=== PATIENT | male | born 1965 | race Caucasian/White ===

== ENCOUNTER 2016-12-11 01:33 | Observation (INO) | payer BC, OTHER ==
[2016-12-11] MEDS ORDERED: Ondansetron 4 MG Tab.DIS PO ONE (01:51)
[2016-12-11] MEDS ORDERED: HYDROmorphone 1 MG/ML Syringe ONE (02:03)
[2016-12-11] MEDS ORDERED: LORazepam 2 MG/ML MDV ONE (02:04)
[2016-12-11] MEDS ORDERED: LORazepam 2 MG/ML MDV IVPUSH ONE (02:05)
[2016-12-11] MEDS ORDERED: HYDROmorphone 1 MG/ML Syringe IM ONE (02:05)
--- NOTE | 2016-12-11 02:17 | EDM.PDOC ---
ED HPI GENERAL MEDICAL PROBLEM - General Chief Complaint: Abdominal Pain Stated Complaint: STOMACH/CHEST PAINS Time Seen by Provider: 12/11/16 01:54 Source of Information: Reports: Patient History Limitations: Reports: No Limitations - History of Present Illness INITIAL COMMENTS - FREE TEXT/NARRATIVE: HISTORY AND PHYSICAL: History of present illness: [51-year-old male with no significant past medical history now complaining of upper abdominal pain today. Patient was in [place] earlier and was evaluated for the same complaint. He states they "didn't do anything. "By patient's description they told him his heart was okay and to go home. No exertional chest pain. Patient does feel anxious because of the pain. No productive cough or fever. No prior chronic intra-abdominal problem.denies respiratory symptoms Review of systems: As per history of present illness and below otherwise all systems reviewed and negative. Past medical history: As per history of present illness and as reviewed below otherwise noncontributory. Surgical history: As per history of present illness and as reviewed below otherwise noncontributory. Social history: No reported history of drug or alcohol abuse. Family history: As per history of present illness and as reviewed below otherwise noncontributory. Physical exam: HEENT: Atraumatic, normocephalic, pupils reactive, negative for conjunctival pallor or scleral icterus, mucous membranes moist, throat clear, neck supple, nontender, trachea midline. Lungs: Clear to auscultation, breath sounds equal bilaterally, chest nontender. Heart: S1S2, regular, negative for clicks, rubs, or JVD. Abdomen: Soft, nondistended, positive right upper quadrant tenderness. Negative for masses or hepatosplenomegaly. Negative for costovertebral tenderness. Pelvis: Stable nontender. Genitourinary: Deferred. Rectal: Deferred. Extremities: Atraumatic, negative for cords or calf pain. Neurovascular unremarkable. Neuro: Awake, alert, oriented. Cranial nerves grossly unremarkable. Cerebellum unremarkable. Motor and sensory unremarkable throughout. Exam nonfocal. Diagnostics: [Labs/CT] Therapeutics: [Analgesia and antianxiety medication administered] Impression: [Abdominal pain Anxiety] Plan: [Patient with no prior abdominal or cardiac history now with right upper quadrant abdominal pain complicated by contributory component of anxiety. Analgesia and anxiety lytic administered. Full workup pending including labs and CT.] Definitive disposition and diagnosis as appropriate pending reevaluation and review of above. Right Upper Abdomen Pain Score (Numeric/FACES): 10 - Related Data Allergies Allergy/AdvReac Type Severity Reaction Status Date / Time No Known Allergies Allergy Verified 12/11/16 02:12 Home Meds: Home Meds Multivitamin [Multivitamins] 1 cap PO DAILY 11/16/16 [History] Past Medical History Respiratory History: Reports: Pneumonia, Recurrent, Other (See Below) Other Respiratory History: URI Genitourinary History: Reports: Other (See Below) Other Genitourinary History: proctitis Social & Family History - Tobacco Use Smoking Status *Q: Never Smoker Second Hand Smoke Exposure: No - Caffeine Use Caffeine Use: Reports: Coffee, Tea - Alcohol Use Days Per Week of Alcohol Use: 0 - Recreational Drug Use Recreational Drug Use: No ED ROS GENERAL - Review of Systems Review Of Systems: See Below (History of present illness) ED EXAM, GENERAL - Physical Exam Exam: See Below (History of present illness) Course - Vital Signs Last Recorded V/S: Last Vital Signs Temp 37.0 C 12/11/16 01:35 Pulse 56 L 12/11/16 02:31 Resp 18 12/11/16 02:31 BP 150/84 H 12/11/16 02:31 Pulse Ox 97 12/11/16 02:31 - Orders/Labs/Meds Orders: Active Orders 24 hr Category Date Time Status Admission Status [Patient Status] [ADT] Stat ADT 12/11/16 04:48 Ordered NPO [Nothing Per Oral Diet] [DIET] Diet 12/11/16 Breakfast Ordered Abdomen Pelvis w wo Cont [CT] Stat Exams 12/11/16 02:52 Taken UA W/MICROSCOPIC [URIN] Stat Lab 12/11/16 02:50 Uncollected Lactated Ringers @ 125 MLS/HR(1,000ml) Med 12/11/16 05:00 Ordered Lactated Ringers [Ringers, Lactated] 1,000 ml IV ASDIRECTED Piperacillin/Tazobactam [Piperacil-Tazobact] 4.5 gm Med 12/11/16 04:46 Ordered Sodium Chloride 0.9% [Normal Saline] 100 ml IV ONETIME Sodium Chloride 0.9% [Normal Saline] 1,000 ml Med 12/11/16 04:15 Active IV .Bolus Sodium Chloride 0.9% [Saline Flush] Med 12/11/16 02:50 Active 10 ml FLUSH ASDIRECTED PRN Sodium Chloride 0.9% [Saline Flush] Med 12/11/16 02:50 Active 2.5 ml FLUSH ASDIRECTED PRN Peripheral IV Insertion Adult [OM.PC] Stat Oth 12/11/16 02:50 Ordered Medication Orders Sodium Chloride (Normal Saline) 1,000 mls @ 999 mls/hr IV .Bolus ONE Stop: 12/11/16 05:15 Last Admin: 12/11/16 04:20 Dose: 999 mls/hr Piperacillin Sod/Tazobactam (Sod 4.5 gm/ Sodium Chloride) 100 mls @ 100 mls/hr IV ONETIME ONE Stop: 12/11/16 05:45 Lactated Ringer's (Ringers, Lactated) 1,000 mls @ 125 mls/hr IV ASDIRECTED AIDEN Sodium Chloride (Saline Flush) 10 ml FLUSH ASDIRECTED PRN PRN Reason: Keep Vein Open Sodium Chloride (Saline Flush) 2.5 ml FLUSH ASDIRECTED PRN PRN Reason: Keep Vein Open Labs: Laboratory Tests 12/11/16 12/11/16 Range/Units 02:47 02:47 WBC 21.29 H (4.0-11.0) K/uL RBC 5.78 (4.50-5.90) M/uL Hgb 16.8 (13.0-17.0) g/dL Hct 48.2 (38.0-50.0) % MCV 83.4 (80.0-98.0) fL MCH 29.1 (27.0-32.0) pg MCHC 34.9 (31.0-37.0) g/dL RDW Std Deviation 40.1 (28.0-62.0) fl RDW Coeff of Jenna 13 (11.0-15.0) % Plt Count 272 (150-400) K/uL MPV 8.90 (7.40-12.00) fL Neut % (Auto) 80.9 H (48.0-80.0) % Lymph % (Auto) 6.2 L (16.0-40.0) % [place] % (Auto) 12.8 (0.0-15.0) % Eos % (Auto) 0.0 (0.0-7.0) % Baso % (Auto) 0.1 (0.0-1.5) % Neut # (Auto) 17.2 H (1.4-5.7) K/uL Lymph # (Auto) 1.3 (0.6-2.4) K/uL [place] # (Auto) 2.7 H (0.0-0.8) K/uL Eos # (Auto) 0.0 (0.0-0.7) K/uL Baso # (Auto) 0.0 (0.0-0.1) K/uL Nucleated RBC % 0.0 /100WBC Nucleated RBCs # 0 K/uL Sodium 136 (136-146) mmol/L Potassium 3.5 (3.5-5.1) mmol/L Chloride 100 (98-110) mmol/L Carbon Dioxide 22 (21-31) mmol/L BUN 11 (6.0-23.0) mg/dL Creatinine 0.9 (0.6-1.5) mg/dL Est Cr Clr Drug Dosing 116.54 mL/min Estimated GFR (MDRD) > 60.0 ml/min Glucose 120 H (60-110) mg/dL Calcium 9.2 (8.8-10.8) mg/dL Total Bilirubin 0.7 (0.1-1.5) mg/dL AST 26 (5-40) IU/L ALT 25 (8-54) IU/L Alkaline Phosphatase 91 (40-150) Total Protein 7.7 (6.0-8.0) g/dL Albumin 4.5 (3.5-5.0) g/dL Globulin 3.2 (2.0-3.5) g/dL Albumin/Globulin Ratio 1.4 (1.3-2.8) Lipase 15 (7-80) U/L Meds: Medications Generic Name Dose Route Start Last Admin Trade Name Freq PRN Reason Stop Dose Admin Sodium Chloride 1,000 mls @ 999 mls/hr 12/11/16 04:15 12/11/16 04:20 Normal Saline IV 12/11/16 05:15 999 mls/hr .Bolus ONE Administration Piperacillin Sod/Tazobactam 100 mls @ 100 mls/hr 12/11/16 04:46 Sod 4.5 gm/ Sodium Chloride IV 12/11/16 05:45 ONETIME ONE Lactated Ringer's 1,000 mls @ 125 mls/hr 12/11/16 05:00 Ringers, Lactated IV ASDIRECTED AIDEN Sodium Chloride 10 ml 12/11/16 02:50 Saline Flush FLUSH ASDIRECTED PRN Keep Vein Open Sodium Chloride 2.5 ml 12/11/16 02:50 Saline Flush FLUSH ASDIRECTED PRN Keep Vein Open Discontinued Medications Generic Name Dose Route Start Last Admin Trade Name Freq PRN Reason Stop Dose Admin Hydromorphone HCl Confirm 12/11/16 02:03 12/11/16 02:31 Dilaudid Administered 12/11/16 02:04 Not Given Dose 1 mg .ROUTE .STK-MED ONE Hydromorphone HCl 1 mg 12/11/16 02:05 12/11/16 02:10 Dilaudid IM 12/11/16 02:06 1 mg ONETIME ONE Administration Sodium Chloride 1,000 mls @ 999 mls/hr 12/11/16 02:54 12/11/16 02:55 Normal Saline IV 12/11/16 03:54 999 mls/hr .Bolus ONE Administration Iopamidol 100 ml 12/11/16 03:32 12/11/16 03:32 Isovue Multipack-370 (76%) IVPUSH 12/11/16 03:33 100 ml ONETIME STA Administration Lorazepam 1 mg 12/11/16 02:05 12/11/16 02:15 Ativan IVPUSH 12/11/16 02:06 1 mg ONETIME ONE Administration Lorazepam Confirm 12/11/16 02:04 12/11/16 02:30 Ativan Administered 12/11/16 02:05 Not Given Dose 2 mg .ROUTE .STK-MED ONE Ondansetron HCl 4 mg 12/11/16 01:51 12/11/16 02:00 Zofran Odt PO 12/11/16 01:52 4 mg ONETIME ONE Administration Departure - Departure Time of Disposition: 04:50 Disposition: Refer to Observation Condition: Good Clinical Impression: Acute cholecystitis, Abdominal pain, Leukocytosis - Discharge Information - My Orders Last 24 Hours: My Active Orders 12/11/16 02:50 UA W/MICROSCOPIC [URIN] Stat Sodium Chloride 0.9% [Saline Flush] 10 ml FLUSH ASDIRECTED PRN Sodium Chloride 0.9% [Saline Flush] 2.5 ml FLUSH ASDIRECTED PRN Peripheral IV Insertion Adult [OM.PC] Stat 12/11/16 02:52 Abdomen Pelvis w wo Cont [CT] Stat 12/11/16 04:15 Sodium Chloride 0.9% [Normal Saline] 1,000 ml IV .Bolus 12/11/16 04:46 Piperacillin/Tazobactam [Piperacil-Tazobact] 4.5 gm Sodium Chloride 0.9% [ Normal Saline] 100 ml IV ONETIME 12/11/16 04:48 Admission Status [Patient Status] [ADT] Stat 12/11/16 05:00 Lactated Ringers @ 125 MLS/HR(1,000ml) Lactated Ringers [Ringers, Lactated] 1, 000 ml IV ASDIRECTED 12/11/16 Breakfast NPO [Nothing Per Oral Diet] [DIET] - Assessment/Plan Last 24 Hours: My Active Orders 12/11/16 02:50 UA W/MICROSCOPIC [URIN] Stat Sodium Chloride 0.9% [Saline Flush] 10 ml FLUSH ASDIRECTED PRN Sodium Chloride 0.9% [Saline Flush] 2.5 ml FLUSH ASDIRECTED PRN Peripheral IV Insertion Adult [OM.PC] Stat 12/11/16 02:52 Abdomen Pelvis w wo Cont [CT] Stat 12/11/16 04:15 Sodium Chloride 0.9% [Normal Saline] 1,000 ml IV .Bolus 12/11/16 04:46 Piperacillin/Tazobactam [Piperacil-Tazobact] 4.5 gm Sodium Chloride 0.9% [ Normal Saline] 100 ml IV ONETIME 12/11/16 04:48 Admission Status [Patient Status] [ADT] Stat 12/11/16 05:00 Lactated Ringers @ 125 MLS/HR(1,000ml) Lactated Ringers [Ringers, Lactated] 1, 000 ml IV ASDIRECTED 12/11/16 Breakfast NPO [Nothing Per Oral Diet] [DIET]
[2016-12-11] MEDS ORDERED: Sodium Chloride 0.9% 10 ML Syringe FLUSH PRN (02:50)
[2016-12-11] MEDS ORDERED: Sodium Chloride 0.9% 2.5 ML Syringe FLUSH PRN (02:50)
[2016-12-11] MEDS ORDERED: Sodium Chloride 0.9% 1,000 ML IV ONE ×2 (02:54→04:15)
[2016-12-11 03:18] LABS: CHLORIDE,CL 100 mmol/L (98-110); SODIUM,NA 136 mmol/L (136-146)
[2016-12-11] MEDS ORDERED: Iopamidol 755 MG/ML 500 ML Multipack Bottle IVPUSH STA (03:32)
[2016-12-11] MEDS ORDERED: Piperacillin/Tazobactam 4.5 GM in Sodium Chloride 0.9% 100 ML IV ONE (04:46)
[2016-12-11] MEDS: Lactated Ringers 1,000 ML IV SCH ×2 (04:53→18:05)
[2016-12-11] MEDS ORDERED: diphenhydrAMINE 50 MG/ML SDV IVPUSH PRN (07:23)
[2016-12-11] MEDS ORDERED: Acetaminophen/HYDROcodone 325-5 MG Tab PO PRN (07:23)
[2016-12-11] MEDS: HYDROmorphone 2 MG/ML Syringe IVPUSH PRN ×3 (07:31→23:07)
[2016-12-11] MEDS ORDERED: Ondansetron 4 MG/2 ML SDV IVPUSH PRN (07:42)
[2016-12-11] MEDS ORDERED: Promethazine 25 MG/ML SDV IM PRN (08:55)
[2016-12-11] MEDS ORDERED: Polyethylene Glycol 3350 Powder 17 GM Packet PO SCH (09:00)
--- NOTE | 2016-12-11 10:18 | CT ---
EXAM DATE: 12/11/16 PATIENT'S AGE: 51 Patient: GABI CORDOVA Facility: [place], [place] Site . Site : 1965 Study: CT Abdomen/Pelvis [id number] 3:56:48 AM Ordering Physician: Fermin Shaw Final Report: INDICATION: Abdominal pain TECHNIQUE: CT abdomen and pelvis acquired with and without i.v. contrast. Coronal and sagittal reformats were obtained. COMPARISON: None FINDINGS: Lower chest: Moderate bibasilar subsegmental atelectasis is seen. Liver: Ill-defined hypodense serpiginous foci are seen in the right lobe of the liver near the gallbladder fossa. The etiology is uncertain. But may be related to adjacent inflammatory changes within the gallbladder. Spleen: Unremarkable. Pancreas: Unremarkable. Gallbladder and bile ducts: Severe wall thickening of the gallbladder is present within mildly hyperdense appearance of the gallbladder lumen seen. Kidneys: Unremarkable. No kidney or ureteral stones and no hydronephrosis seen. Adrenal glands: Unremarkable. GI tract: Mild wall thickening in the hepatic flexure and proximal transverse colon present. The appendix is normal in appearance and size. Vascular: There is a prominent small caliber arterial branch of the common hepatic artery seen along the anterior wall of the gallbladder. Lymph nodes: Unremarkable. Miscellaneous: Unremarkable. No pneumoperitoneum is seen. A small amount of ascites is noted in the pelvis and right pericolic gutter. Pelvic Organs: Unremarkable. Bones: Unremarkable for age. IMPRESSION: 1. Severe wall thickening of the gallbladder is present within mildly hyperdense appearance of the gallbladder lumen seen. Findings most likely due to acute cholecystitis. 2. Mild wall thickening in the hepatic flexure and proximal transverse colon present. This may be due to secondary inflammation from adjacent cholecystitis, infectious colitis or inflammatory bowel disease. 3. There is a prominent small caliber arterial branch of the common hepatic artery seen along the anterior wall of the gallbladder. Dictated by Corwin Pendleton MD @ 12/11/2016 4:11:53 AM Dictated by: Corwin Pendleton MD @ 12/11/2016 04:11:59 (Electronic Signature) Report Signed by Proxy. [facility] STATE HOSPITALFabiola
[2016-12-11] MEDS ORDERED: Lactated Ringers 1,000 ML IV ONE (16:04)
--- NOTE | 2016-12-11 16:16 | PCM.HP ---
H&P History of Present Illness - General Date of Service: 12/11/16 Admit Problem/Dx: Admission Diagnosis/Problem Admission Diagnosis/Problem Acute cholecystitis Source of Information: Patient History Limitations: Reports: No Limitations - History of Present Illness Initial Comments - Free Text/Narative: Patient is a 51-year-old male who presents with a 2-1/2 day history of right upper quadrant pain, nausea, vomiting, fever, diaphoresis and chills. The patient was found to have acute cholecystitis. 2 months ago the patient was seen in [place] emergency room for epigastric/chest pain. He was told it was muscle spasms and given narcotics. He developed severe constipation from this and developed proctitis. He's been on a bland diet and taking laxatives for this for the last 2 months. His chest pain/ 3 days ago the patient a jalapeno chedder hot dog from a gas station as a treat. Several hours after this the patient developed severe right upper quadrant pain. This is associated with the symptoms described above. He presented to the outside hospital emergency facility and was told he was "fine" and sent home with Zofran. The patient's symptoms continued to get more severe and he presented to the emergency room this morning. His white blood count was 21,[address] was performed that showed the following; 1. Severe wall thickening of the gallbladder is present within mildly hyperdense appearance of the gallbladder lumen seen. Findings most likely due to acute cholecystitis. 2. Mild wall thickening in the hepatic flexure and proximal transverse colon present. This may be due to secondary inflammation from adjacent cholecystitis, infectious colitis or inflammatory bowel disease. 3. There is a prominent small caliber arterial branch of the common hepatic artery seen along the anterior wall of the gallbladder The patient was given zofran, IVF, made NPO and given IV zosyn. He feels slightly better this afternoon. Right Upper Abdomen Pain Score (Numeric/FACES): 1 - Related Data Allergies/Adverse Reactions: Allergies Allergy/AdvReac Type Severity Reaction Status Date / Time No Known Allergies Allergy Verified 12/11/16 02:12 Home Medications: Home Meds Multivitamin [Multivitamins] 1 cap PO DAILY 11/16/16 [History] Past Medical History HEENT History: Reports: None Cardiovascular History: Reports: None Respiratory History: Reports: Pneumonia, Recurrent, Other (See Below) Other Respiratory History: URI Gastrointestinal History: Reports: None Genitourinary History: Reports: Other (See Below) Other Genitourinary History: proctitis Musculoskeletal History: Reports: None Neurological History: Reports: None Psychiatric History: Reports: None Endocrine/Metabolic History: Reports: None Immunologic History: Reports: None Oncologic (Cancer) History: Reports: None Dermatologic History: Reports: None - Infectious Disease History Infectious Disease History: Reports: None - Past Surgical History Head Surgeries/Procedures: Reports: None HEENT Surgical History: Reports: None GI Surgical History: Reports: Hernia, Abdominal Social & Family History - Family History Family Medical History: Noncontributory - Tobacco Use Smoking Status *Q: Never Smoker Second Hand Smoke Exposure: No - Caffeine Use Caffeine Use: Reports: Coffee - Alcohol Use Days Per Week of Alcohol Use: 0 - Recreational Drug Use Recreational Drug Use: No H&P Review of Systems - Review of Systems: Review Of Systems: See Below General: Reports: Chills, Malaise, Weakness, Fatigue, Diaphoresis, Decreased Appetite HEENT: Reports: No Symptoms Pulmonary: Reports: No Symptoms Cardiovascular: Reports: No Symptoms Gastrointestinal: Reports: Abdominal Pain, Anorexia, Nausea, Vomiting. Denies: Black Stool, Bloody Stool, Diarrhea, Decreased Appetite Genitourinary: Reports: No Symptoms Musculoskeletal: Reports: No Symptoms Skin: Reports: No Symptoms Psychiatric: Reports: No Symptoms Neurological: Reports: No Symptoms Hematologic/Lymphatic: Reports: No Symptoms Immunologic: Reports: No Symptoms Exam - Exam Exam: See Below - Vital Signs Vital Signs: Last Vital Signs Temp 37.5 C 12/11/16 11:53 Pulse 83 12/11/16 11:53 Resp 22 H 12/11/16 11:53 BP 138/69 12/11/16 11:53 Pulse Ox 97 12/11/16 11:53 Weight: 112.491 kg - Exam General: Alert, Oriented HEENT: Conjunctiva Clear, EACs Clear, Hearing Intact, Mucosa Moist & [place], Nares Patent, Pupils Equal, Pupils Reactive Lungs: Clear to Auscultation, Normal Respiratory Effort Cardiovascular: Regular Rate, Regular Rhythm Abdomen: Garcia's Sign. No: Peritoneal Signs, Distention, Guarding, Rigidity, Rebound Extremities: Normal Inspection Skin: Warm, Dry, Intact - Patient Data Lab Results Last 24 hrs: Laboratory Results - last 24 hr 12/11/16 12/11/16 Range/Units 05:48 15:24 WBC 21.10 H (4.0-11.0) K/uL RBC 5.63 (4.50-5.90) M/uL Hgb 16.1 (13.0-17.0) g/dL Hct 47.3 (38.0-50.0) % MCV 84.0 (80.0-98.0) fL MCH 28.6 (27.0-32.0) pg MCHC 34.0 (31.0-37.0) g/dL RDW Std Deviation 41.7 (28.0-62.0) fl RDW Coeff of Jenna 14 (11.0-15.0) % Plt Count 255 (150-400) K/uL MPV 9.10 (7.40-12.00) fL Nucleated RBC % 0.0 /100WBC Nucleated RBCs # 0 K/uL Urine Color YELLOW Urine Appearance CLEAR Urine pH 5.5 (5.0-8.0) Ur Specific [place] 1.015 (1.001-1.035) Urine Protein NEGATIVE (NEGATIVE) mg/dL Urine Glucose (UA) NEGATIVE (NEGATIVE) mg/dL Urine Ketones >=80 (NEGATIVE) mg/dL Urine Occult Blood TRACE-LYSED (NEGATIVE) Urine Nitrite NEGATIVE (NEGATIVE) Urine Bilirubin NEGATIVE (NEGATIVE) Urine Urobilinogen 0.2 (<2.0) EU/dL Ur Leukocyte Esterase NEGATIVE (NEGATIVE) Urine RBC 0-3 (0-2/HPF) Urine WBC 0-1 (0-5/HPF) Ur Epithelial Cells RARE (NONE-FEW) Urine Bacteria RARE (NEGATIVE) Urine Mucus LIGHT (NONE-MOD) Result Diagrams: 12/11/16 15:24 12/11/16 02:47 *Q Meaningful Use (ADM) - VTE *Q VTE Criteria *Q: - Stroke *Q Stroke Criteria *Q: - AMI *Q AMI Criteria *Q: - Problem List (1) Acute cholecystitis SNOMED Code(s): 04178030 ICD Code: K81.0 - ACUTE CHOLECYSTITIS Status: Acute Current Visit: Yes Problem List Initiated/Reviewed/Updated: Yes Orders Last 24hrs: Active Orders 24 hr Category Date Time Status Patient Status [ADT] Routine ADT 12/11/16 07:23 Active Notify Provider Vital Signs [RC] PRN Care 12/11/16 07:24 Active Oxygen Therapy [RC] PRN Care 12/11/16 07:23 Active RT Incentive Spirometry [RC] ASDIRECTED Care 12/11/16 07:23 Active Up ad Milly [RC] ASDIRECTED Care 12/11/16 07:23 Active Vital Signs [RC] PER UNIT ROUTINE Care 12/11/16 07:23 Active CBC WITH AUTO DIFF [HEME] AM Lab 12/12/16 05:11 Ordered COMPREHENSIVE METABOLIC PN,CMP [CHEM] AM Lab 12/12/16 05:11 Ordered Acetaminophen/HYDROcodone [[place] 325-5 MG] Med 12/11/16 07:23 Active 2 tab PO Q4H PRN HYDROmorphone [Dilaudid] Med 12/11/16 06:34 Active 0.5 mg IVPUSH Q2H PRN Lactated Ringers [Ringers, Lactated] 1,000 ml Med 12/11/16 06:45 Active IV ASDIRECTED Ondansetron [Zofran] Med 12/11/16 07:42 Active 4 mg IVPUSH Q6H PRN Piperacillin/Tazobactam [Piperacil-Tazobact] 3.375 gm Med 12/11/16 16:00 Active Sodium Chloride 0.9% [Normal Saline] 50 ml IV Q8H Polyethylene Glycol 3350 [MiraLAX] Med 12/11/16 09:00 Active 17 gm PO DAILY Promethazine [Phenergan] Med 12/11/16 08:55 Active 12.5 mg IM Q4H PRN diphenhydrAMINE [Benadryl] Med 12/11/16 07:23 Active 25 mg IVPUSH Q4H PRN Resuscitation Status Routine Resus Stat 12/11/16 07:23 Ordered Medication Orders Hydrocodone Bitart/Acetaminophen ([place] 325-5 Mg) 2 tab PO Q4H PRN PRN Reason: Pain (moderate 4-6) Diphenhydramine HCl (Benadryl) 25 mg IVPUSH Q4H PRN PRN Reason: Itching Hydromorphone HCl (Dilaudid) 0.5 mg IVPUSH Q2H PRN PRN Reason: Pain Last Admin: 12/11/16 09:56 Dose: 0.5 mg Admin: 06/15/17 07:31 Dose: 0.5 mg Lactated Ringer's (Ringers, Lactated) 1,000 mls @ 125 mls/hr IV ASDIRECTED AIDEN Last Admin: 12/11/16 04:53 Dose: 125 mls/hr Lactated Ringer's (Ringers, Lactated) 1,000 mls @ 125 mls/hr IV ASDIRECTED AIDEN Piperacillin Sod/Tazobactam (Sod 3.375 gm/ Sodium Chloride) 50 mls @ 100 mls/ hr IV Q8H AIDEN Ondansetron HCl (Zofran) 4 mg IVPUSH Q6H PRN PRN Reason: Nausea/Vomiting Last Admin: 12/11/16 08:13 Dose: 4 mg Polyethylene Glycol (Miralax) 17 gm PO DAILY AIDNE Last Admin: 12/11/16 09:11 Dose: Not Given Promethazine HCl (Phenergan) 12.5 mg IM Q4H PRN PRN Reason: Nausea Sodium Chloride (Saline Flush) 10 ml FLUSH ASDIRECTED PRN PRN Reason: Keep Vein Open Sodium Chloride (Saline Flush) 2.5 ml FLUSH ASDIRECTED PRN PRN Reason: Keep Vein Open Assessment/Plan Comment:: Patient is a 51 year old male with severe acute cholecystitis. Given his labaratory and CT findings, I am going to try to control his infection with conservative management. The patient and I discussed the pathophysiology of biliary disease. For acute cholecystitis, the treatment is generally removal of the gallbladder. However given the high WBC, his later presentation and imaging findings I am concerned that a surgery will carry a high risk of conversion to open and possible operative complications. The patient and I discussed the laparoscopic and open approach to cholecystectomy. Should the patient not improve over the next 24-48 hours, we will discuss the role of operation vs biliary drainage via a cholecystostomy tube. Pain: IV dilaudid 0.5 mg q1hr prn, po norco prn Heart/Lungs: VSS currently. Encourage IS use. Diet: NPO until WBC improving. Ice chips and sips with meds ok. Renal: Monitor UOP closely. Will keep on LR @125ml/hr. Will also give a fluid bolus of 1L to aide in resuscitation. ID: [email or web address] 3.375 q 8hr. WBC recheck unchanged. Will monitor closely. Heme: H/H stable. Px: No heparin at this time given the possibility of surgery in the near future.
[2016-12-11] MEDS: Piperacillin/Tazobactam 3.375 GM in Sodium Chloride 0.9% 50 ML IV SCH ×2 (16:28→23:09)
[2016-12-12] MEDS: Acetaminophen 325 MG Tab PO PRN ×2 (00:23→13:52)
[2016-12-12] MEDS: Lactated Ringers 1,000 ML IV SCH ×4 (02:38→14:12)
[2016-12-12 05:39] LABS: CHLORIDE,CL 104 mmol/L (98-110); SODIUM,NA 136 mmol/L (136-146)
[2016-12-12] MEDS: Piperacillin/Tazobactam 3.375 GM in Sodium Chloride 0.9% 50 ML IV SCH ×2 (07:51→16:35)
[2016-12-12 13:08] LABS: CHLORIDE,CL 105 mmol/L (98-110); SODIUM,NA 138 mmol/L (136-146)
[2016-12-12 13:58] VITALS: BP 124/71
--- NOTE | 2016-12-12 14:41 | PCM.DCSUM1 ---
Discharge Summary - Hospital Course Free Text/Narrative:: Patient is a 51 year old male who presented with a two day history of RUQ pain. He had a prior attack 2 months prior that was similar but not as severe in nature. This attack was associated with fevers, chills, nausea and vomiting. He was seen at the ED here. A CT was performed that showed a severely inflammed gallbladder with associated inflamation in the colon around it. The patient was resuscitated with IVFs and given zosyn. Over the last 24 hours his WBC has slowly come down. His nausea and vomiting subsided. His pain slightly improved. His bilirubin was slightly increased this mornings so a RUQ US was performed. This showed gangrenous calculous cholecystitis. Given this finding the decision was made to transfer the patient. He should have either a cholecystostomy tube placed (which we cannot do) or have surgery. Surgery carries a very high risk of postoperative sepsis and intraoperative complications. Both of these would be better served in a facility with more resources. - Discharge Data Discharge Disposition: Home, Self-Care 01 Condition: Fair - Discharge Diagnosis/Problem(s) (1) Acute cholecystitis SNOMED Code(s): 42324936 ICD Code: K81.0 - ACUTE CHOLECYSTITIS Status: Acute Current Visit: Yes - Discharge Plan Home Medications: Home Meds Multivitamin [Multivitamins] 1 cap PO DAILY 11/16/16 [History] - Patient Data Vitals - Most Recent: Last Vital Signs Temp 36.5 C 12/12/16 13:57 Pulse 88 12/12/16 13:57 Resp 20 12/12/16 13:57 BP 124/71 12/12/16 13:57 Pulse Ox 93 L 12/12/16 07:15 Weight - Most Recent: 112.491 kg I&O - Last 24 hours: Intake & Output 12/11/16 12/12/16 12/12/16 22:59 06:59 14:59 Intake Total 0 1070 50 Output Total 475 1100 Balance -475 -30 50 Lab Results - Last 24 hrs: Laboratory Results - last 24 hr 12/11/16 12/12/16 12/12/16 Range/Units 15:24 04:41 04:41 WBC 21.10 H 18.78 H (4.0-11.0) K/uL RBC 5.63 5.15 (4.50-5.90) M/uL Hgb 16.1 14.4 (13.0-17.0) g/dL Hct 47.3 43.3 (38.0-50.0) % MCV 84.0 84.1 (80.0-98.0) fL MCH 28.6 28.0 (27.0-32.0) pg MCHC 34.0 33.3 (31.0-37.0) g/dL RDW Std Deviation 41.7 41.7 (28.0-62.0) fl RDW Coeff of Jenna 14 14 (11.0-15.0) % Plt Count 255 250 (150-400) K/uL MPV 9.10 9.20 (7.40-12.00) fL Add Manual Diff YES Neutrophils % (Manual) 76 (48.0-80.0) % Lymphocytes % (Manual) 16 (16.0-40.0) % Monocytes % (Manual) 7 (0.0-15.0) % Eosinophils % (Manual) 1 (0.0-7.0) % Nucleated RBC % 0.0 0.0 /100WBC Absolute Seg Neuts 14.3 Band Neutrophils # 3.0 Lymphocytes # (Manual) 3.0 Monocytes # (Manual) 1.3 Eosinophils # (Manual) 0.2 Nucleated RBCs # 0 0 K/uL Sodium 136 (136-146) mmol/L Potassium 3.6 (3.5-5.1) mmol/L Chloride 104 (98-110) mmol/L Carbon Dioxide 23 (21-31) mmol/L BUN 8 (6.0-23.0) mg/dL Creatinine 0.9 (0.6-1.5) mg/dL Est Cr Clr Drug Dosing 116.54 mL/min Estimated GFR (MDRD) > 60.0 ml/min Glucose 94 (60-110) mg/dL Calcium 8.5 L (8.8-10.8) mg/dL Total Bilirubin 1.6 H (0.1-1.5) mg/dL AST 20 (5-40) IU/L ALT 22 (8-54) IU/L Alkaline Phosphatase 67 (40-150) Total Protein 5.8 L (6.0-8.0) g/dL Albumin 3.6 (3.5-5.0) g/dL Globulin 2.2 (2.0-3.5) g/dL Albumin/Globulin Ratio 1.6 (1.3-2.8) 12/12/16 12/12/16 Range/Units 12:25 12:25 WBC 17.62 H (4.0-11.0) K/uL RBC 5.00 (4.50-5.90) M/uL Hgb 14.3 (13.0-17.0) g/dL Hct 42.1 (38.0-50.0) % MCV 84.2 (80.0-98.0) fL MCH 28.6 (27.0-32.0) pg MCHC 34.0 (31.0-37.0) g/dL RDW Std Deviation 43.0 (28.0-62.0) fl RDW Coeff of Jenna 14 (11.0-15.0) % Plt Count 220 (150-400) K/uL MPV 8.90 (7.40-12.00) fL Add Manual Diff Neutrophils % (Manual) (48.0-80.0) % Lymphocytes % (Manual) (16.0-40.0) % Monocytes % (Manual) (0.0-15.0) % Eosinophils % (Manual) (0.0-7.0) % Nucleated RBC % 0.0 /100WBC Absolute Seg Neuts Band Neutrophils # Lymphocytes # (Manual) Monocytes # (Manual) Eosinophils # (Manual) Nucleated RBCs # 0 K/uL Sodium 138 (136-146) mmol/L Potassium 3.4 L (3.5-5.1) mmol/L Chloride 105 (98-110) mmol/L Carbon Dioxide 23 (21-31) mmol/L BUN 8 (6.0-23.0) mg/dL Creatinine 0.8 (0.6-1.5) mg/dL Est Cr Clr Drug Dosing 131.10 mL/min Estimated GFR (MDRD) > 60.0 ml/min Glucose 95 (60-110) mg/dL Calcium 8.6 L (8.8-10.8) mg/dL Total Bilirubin 1.5 (0.1-1.5) mg/dL AST 19 (5-40) IU/L ALT 21 (8-54) IU/L Alkaline Phosphatase 69 (40-150) Total Protein 6.2 (6.0-8.0) g/dL Albumin 3.6 (3.5-5.0) g/dL Globulin 2.6 (2.0-3.5) g/dL Albumin/Globulin Ratio 1.4 (1.3-2.8) Med Orders - Current: Current Medications Acetaminophen (Tylenol) 650 mg PO Q6H PRN PRN Reason: Fever Last Admin: 12/12/16 13:52 Dose: 650 mg Hydrocodone Bitart/Acetaminophen ([place] 325-5 Mg) 2 tab PO Q4H PRN PRN Reason: Pain (moderate 4-6) Diphenhydramine HCl (Benadryl) 25 mg IVPUSH Q4H PRN PRN Reason: Itching Hydromorphone HCl (Dilaudid) 0.5 mg IVPUSH Q2H PRN PRN Reason: Pain Last Admin: 12/11/16 23:07 Dose: 0.5 mg Lactated Ringer's (Ringers, Lactated) 1,000 mls @ 125 mls/hr IV ASDIRECTED [facility] [place] Last Admin: 12/12/16 02:38 Dose: 125 mls/hr Lactated Ringer's (Ringers, Lactated) 1,000 mls @ 125 mls/hr IV ASDIRECTED [facility] [place] Last Admin: 12/12/16 14:12 Dose: 125 mls/hr Piperacillin Sod/Tazobactam (Sod 3.375 gm/ Sodium Chloride) 50 mls @ 100 mls/ hr IV Q8H [facility] [place] Last Admin: 12/12/16 07:51 Dose: 100 mls/hr Ondansetron HCl (Zofran) 4 mg IVPUSH Q6H PRN PRN Reason: Nausea/Vomiting Last Admin: 12/11/16 08:13 Dose: 4 mg Promethazine HCl (Phenergan) 12.5 mg IM Q4H PRN PRN Reason: Nausea Sodium Chloride (Saline Flush) 10 ml FLUSH ASDIRECTED PRN PRN Reason: Keep Vein Open Sodium Chloride (Saline Flush) 2.5 ml FLUSH ASDIRECTED PRN PRN Reason: Keep Vein Open Discontinued Medications Hydromorphone HCl (Dilaudid) Confirm Administered Dose 1 mg .ROUTE .STK-MED ONE Stop: 12/11/16 02:04 Last Admin: 12/11/16 02:31 Dose: Not Given Hydromorphone HCl (Dilaudid) 1 mg IM ONETIME ONE Stop: 12/11/16 02:06 Last Admin: 12/11/16 02:10 Dose: 1 mg Sodium Chloride (Normal Saline) 1,000 mls @ 999 mls/hr IV .Bolus ONE Stop: 12/11/16 03:54 Last Admin: 12/11/16 02:55 Dose: 999 mls/hr Sodium Chloride (Normal Saline) 1,000 mls @ 999 mls/hr IV .Bolus ONE Stop: 12/11/16 05:15 Last Admin: 12/11/16 04:20 Dose: 999 mls/hr Piperacillin Sod/Tazobactam (Sod 4.5 gm/ Sodium Chloride) 100 mls @ 100 mls/hr IV ONETIME ONE Stop: 12/11/16 05:45 Last Admin: 12/11/16 04:54 Dose: 100 mls/hr Lactated Ringer's (Ringers, Lactated) 1,000 mls @ 1,000 mls/hr IV .BOLUS ONE Stop: 12/11/16 17:03 Last Admin: 12/11/16 16:31 Dose: 1,000 mls/hr Iopamidol (Isovue Multipack-370 (76%)) 100 ml IVPUSH ONETIME STA Stop: 12/11/16 03:33 Last Admin: 12/11/16 03:32 Dose: 100 ml Lorazepam (Ativan) 1 mg IVPUSH ONETIME ONE Stop: 12/11/16 02:06 Last Admin: 12/11/16 02:15 Dose: 1 mg Lorazepam (Ativan) Confirm Administered Dose 2 mg .ROUTE .STK-MED ONE Stop: 12/11/16 02:05 Last Admin: 12/11/16 02:30 Dose: Not Given Ondansetron HCl (Zofran Odt) 4 mg PO ONETIME ONE Stop: 12/11/16 01:52 Last Admin: 12/11/16 02:00 Dose: 4 mg Polyethylene Glycol (Miralax) 17 gm PO DAILY [facility] Last Admin: 12/11/16 09:11 Dose: Not Given *Q Meaningful Use (DIS) - VTE *Q VTE Criteria *Q: - Stroke *Q Stroke Criteria *Q: - AMI *Q AMI Criteria *Q:
--- NOTE | 2016-12-12 14:45 | PCM.SURGPN ---
- General Info Date of Service: 12/12/16 Functional Status: Reports: other (Still having RUQ joanne. Febrile last night to 38C. ) - Review of Systems General: Reports: Fever, Weakness Gastrointestinal: Reports: Abdominal pain - Patient Data Vitals - most recent: Last Vital Signs Temp 36.5 C 12/12/16 13:57 Pulse 88 12/12/16 13:57 Resp 20 12/12/16 13:57 BP 124/71 12/12/16 13:57 Pulse Ox 93 L 12/12/16 07:15 Weight - most recent: 112.491 kg I&O - last 24 hours: Intake & Output 12/11/16 12/12/16 12/12/16 22:59 06:59 14:59 Intake Total 0 1070 55 Output Total 475 1100 700 Balance -292 -86 -449 Lab Results last 24 hrs: Laboratory Results - last 24 hr 12/11/16 12/12/16 12/12/16 Range/Units 15:24 04:41 04:41 WBC 21.10 H 18.78 H (4.0-11.0) K/uL RBC 5.63 5.15 (4.50-5.90) M/uL Hgb 16.1 14.4 (13.0-17.0) g/dL Hct 47.3 43.3 (38.0-50.0) % MCV 84.0 84.1 (80.0-98.0) fL MCH 28.6 28.0 (27.0-32.0) pg MCHC 34.0 33.3 (31.0-37.0) g/dL RDW Std Deviation 41.7 41.7 (28.0-62.0) fl RDW Coeff of Jenna 14 14 (11.0-15.0) % Plt Count 255 250 (150-400) K/uL MPV 9.10 9.20 (7.40-12.00) fL Add Manual Diff YES Neutrophils % (Manual) 76 (48.0-80.0) % Lymphocytes % (Manual) 16 (16.0-40.0) % Monocytes % (Manual) 7 (0.0-15.0) % Eosinophils % (Manual) 1 (0.0-7.0) % Nucleated RBC % 0.0 0.0 /100WBC Absolute Seg Neuts 14.3 Band Neutrophils # 3.0 Lymphocytes # (Manual) 3.0 Monocytes # (Manual) 1.3 Eosinophils # (Manual) 0.2 Nucleated RBCs # 0 0 K/uL Sodium 136 (136-146) mmol/L Potassium 3.6 (3.5-5.1) mmol/L Chloride 104 (98-110) mmol/L Carbon Dioxide 23 (21-31) mmol/L BUN 8 (6.0-23.0) mg/dL Creatinine 0.9 (0.6-1.5) mg/dL Est Cr Clr Drug Dosing 116.54 mL/min Estimated GFR (MDRD) > 60.0 ml/min Glucose 94 (60-110) mg/dL Calcium 8.5 L (8.8-10.8) mg/dL Total Bilirubin 1.6 H (0.1-1.5) mg/dL AST 20 (5-40) IU/L ALT 22 (8-54) IU/L Alkaline Phosphatase 67 (40-150) Total Protein 5.8 L (6.0-8.0) g/dL Albumin 3.6 (3.5-5.0) g/dL Globulin 2.2 (2.0-3.5) g/dL Albumin/Globulin Ratio 1.6 (1.3-2.8) 12/12/16 12/12/16 Range/Units 12:25 12:25 WBC 17.62 H (4.0-11.0) K/uL RBC 5.00 (4.50-5.90) M/uL Hgb 14.3 (13.0-17.0) g/dL Hct 42.1 (38.0-50.0) % MCV 84.2 (80.0-98.0) fL MCH 28.6 (27.0-32.0) pg MCHC 34.0 (31.0-37.0) g/dL RDW Std Deviation 43.0 (28.0-62.0) fl RDW Coeff of Jenna 14 (11.0-15.0) % Plt Count 220 (150-400) K/uL MPV 8.90 (7.40-12.00) fL Add Manual Diff Neutrophils % (Manual) (48.0-80.0) % Lymphocytes % (Manual) (16.0-40.0) % Monocytes % (Manual) (0.0-15.0) % Eosinophils % (Manual) (0.0-7.0) % Nucleated RBC % 0.0 /100WBC Absolute Seg Neuts Band Neutrophils # Lymphocytes # (Manual) Monocytes # (Manual) Eosinophils # (Manual) Nucleated RBCs # 0 K/uL Sodium 138 (136-146) mmol/L Potassium 3.4 L (3.5-5.1) mmol/L Chloride 105 (98-110) mmol/L Carbon Dioxide 23 (21-31) mmol/L BUN 8 (6.0-23.0) mg/dL Creatinine 0.8 (0.6-1.5) mg/dL Est Cr Clr Drug Dosing 131.10 mL/min Estimated GFR (MDRD) > 60.0 ml/min Glucose 95 (60-110) mg/dL Calcium 8.6 L (8.8-10.8) mg/dL Total Bilirubin 1.5 (0.1-1.5) mg/dL AST 19 (5-40) IU/L ALT 21 (8-54) IU/L Alkaline Phosphatase 69 (40-150) Total Protein 6.2 (6.0-8.0) g/dL Albumin 3.6 (3.5-5.0) g/dL Globulin 2.6 (2.0-3.5) g/dL Albumin/Globulin Ratio 1.4 (1.3-2.8) Med Orders - Current: Current Medications Acetaminophen (Tylenol) 650 mg PO Q6H PRN PRN Reason: Fever Last Admin: 12/12/16 13:52 Dose: 650 mg Hydrocodone Bitart/Acetaminophen ([place] 325-5 Mg) 2 tab PO Q4H PRN PRN Reason: Pain (moderate 4-6) Diphenhydramine HCl (Benadryl) 25 mg IVPUSH Q4H PRN PRN Reason: Itching Hydromorphone HCl (Dilaudid) 0.5 mg IVPUSH Q2H PRN PRN Reason: Pain Last Admin: 12/11/16 23:07 Dose: 0.5 mg Lactated Ringer's (Ringers, Lactated) 1,000 mls @ 125 mls/hr IV ASDIRECTED [facility] Last Admin: 12/12/16 02:38 Dose: 125 mls/hr Lactated Ringer's (Ringers, Lactated) 1,000 mls @ 125 mls/hr IV ASDIRECTED [facility] Last Admin: 12/12/16 14:12 Dose: 125 mls/hr Piperacillin Sod/Tazobactam (Sod 3.375 gm/ Sodium Chloride) 50 mls @ 100 mls/ hr IV Q8H [facility] Last Admin: 12/12/16 07:51 Dose: 100 mls/hr Ondansetron HCl (Zofran) 4 mg IVPUSH Q6H PRN PRN Reason: Nausea/Vomiting Last Admin: 12/11/16 08:13 Dose: 4 mg Promethazine HCl (Phenergan) 12.5 mg IM Q4H PRN PRN Reason: Nausea Sodium Chloride (Saline Flush) 10 ml FLUSH ASDIRECTED PRN PRN Reason: Keep Vein Open Sodium Chloride (Saline Flush) 2.5 ml FLUSH ASDIRECTED PRN PRN Reason: Keep Vein Open Discontinued Medications Hydromorphone HCl (Dilaudid) Confirm Administered Dose 1 mg .ROUTE .STK-MED ONE Stop: 12/11/16 02:04 Last Admin: 12/11/16 02:31 Dose: Not Given Hydromorphone HCl (Dilaudid) 1 mg IM ONETIME ONE Stop: 12/11/16 02:06 Last Admin: 12/11/16 02:10 Dose: 1 mg Sodium Chloride (Normal Saline) 1,000 mls @ 999 mls/hr IV .Bolus ONE Stop: 12/11/16 03:54 Last Admin: 12/11/16 02:55 Dose: 999 mls/hr Sodium Chloride (Normal Saline) 1,000 mls @ 999 mls/hr IV .Bolus ONE Stop: 12/11/16 05:15 Last Admin: 12/11/16 04:20 Dose: 999 mls/hr Piperacillin Sod/Tazobactam (Sod 4.5 gm/ Sodium Chloride) 100 mls @ 100 mls/hr IV ONETIME ONE Stop: 12/11/16 05:45 Last Admin: 12/11/16 04:54 Dose: 100 mls/hr Lactated Ringer's (Ringers, Lactated) 1,000 mls @ 1,000 mls/hr IV .BOLUS ONE Stop: 12/11/16 17:03 Last Admin: 12/11/16 16:31 Dose: 1,000 mls/hr Iopamidol (Isovue Multipack-370 (76%)) 100 ml IVPUSH ONETIME STA Stop: 12/11/16 03:33 Last Admin: 12/11/16 03:32 Dose: 100 ml Lorazepam (Ativan) 1 mg IVPUSH ONETIME ONE Stop: 12/11/16 02:06 Last Admin: 12/11/16 02:15 Dose: 1 mg Lorazepam (Ativan) Confirm Administered Dose 2 mg .ROUTE .STK-MED ONE Stop: 12/11/16 02:05 Last Admin: 12/11/16 02:30 Dose: Not Given Ondansetron HCl (Zofran Odt) 4 mg PO ONETIME ONE Stop: 12/11/16 01:52 Last Admin: 12/11/16 02:00 Dose: 4 mg Polyethylene Glycol (Miralax) 17 gm PO DAILY [facility] Last Admin: 12/11/16 09:11 Dose: Not Given - Exam General: alert, oriented Lungs: Clear to auscultation, Normal respiratory effort Cardiovascular: Regular Rate, Regular Rhythm Abdomen: soft, no distension, tenderness (Herrick sign) Skin: warm, dry, intact Neurological: no new focal deficit Psy/Mental Status: alert, normal affect, normal mood - Problem List & Annotations (1) Acute gangrenous cholecystitis SNOMED Code(s): 69120149 Code(s): K81.0 - ACUTE CHOLECYSTITIS Status: Acute Current Visit: Yes - Problem List Review Problem List Initiated/Reviewed/Updated: Yes - My Orders Last 24 Hours: Active Orders 24 hr Category Date Time Status Intake and Output Strict [RC] Q4HRRT Care 12/12/16 00:00 Active Abdomen Ltd [US] Routine Exams 12/12/16 00:30 Taken CBC WITH AUTO DIFF [HEME] AM Lab 12/13/16 05:11 Ordered CBC WITH AUTO DIFF [HEME] AM Lab 12/14/16 05:11 Ordered CBC WITH AUTO DIFF [HEME] AM Lab 12/15/16 05:11 Ordered CMP [COMPREHENSIVE METABOLIC PN,CMP] [CHEM] AM Lab 12/13/16 05:11 Ordered CMP [COMPREHENSIVE METABOLIC PN,CMP] [CHEM] AM Lab 12/14/16 05:11 Ordered CMP [COMPREHENSIVE METABOLIC PN,CMP] [CHEM] AM Lab 12/15/16 05:11 Ordered Acetaminophen [Tylenol] Med 12/12/16 00:08 Active 650 mg PO Q6H PRN Piperacillin/Tazobactam [Piperacil-Tazobact] 3.375 gm Med 12/11/16 16:00 Active Sodium Chloride 0.9% [Normal Saline] 50 ml IV Q8H Medication Orders Acetaminophen (Tylenol) 650 mg PO Q6H PRN PRN Reason: Fever Last Admin: 12/12/16 13:52 Dose: 650 mg Admin: 12/12/16 00:23 Dose: 650 mg Hydrocodone Bitart/Acetaminophen ([place] 325-5 Mg) 2 tab PO Q4H PRN PRN Reason: Pain (moderate 4-6) Diphenhydramine HCl (Benadryl) 25 mg IVPUSH Q4H PRN PRN Reason: Itching Hydromorphone HCl (Dilaudid) 0.5 mg IVPUSH Q2H PRN PRN Reason: Pain Last Admin: 12/11/16 23:07 Dose: 0.5 mg Admin: 12/11/16 09:56 Dose: 0.5 mg Admin: 12/11/16 07:31 Dose: 0.5 mg Lactated Ringer's (Ringers, Lactated) 1,000 mls @ 125 mls/hr IV ASDIRECTED [facility] Last Admin: 12/12/16 02:38 Dose: 125 mls/hr Infusion: 12/11/16 12:53 Dose: 125 mls/hr Admin: 12/11/16 04:53 Dose: 125 mls/hr Lactated Ringer's (Ringers, Lactated) 1,000 mls @ 125 mls/hr IV ASDIRECTED [facility] Last Admin: 12/12/16 14:12 Dose: 125 mls/hr Infusion: 12/12/16 14:12 Dose: 125 mls/hr Admin: 12/12/16 11:06 Dose: 125 mls/hr Infusion: 12/12/16 02:05 Dose: 125 mls/hr Admin: 12/11/16 18:05 Dose: 125 mls/hr Piperacillin Sod/Tazobactam (Sod 3.375 gm/ Sodium Chloride) 50 mls @ 100 mls/ hr IV Q8H [facility] Last Admin: 12/12/16 07:51 Dose: 100 mls/hr Infusion: 12/11/16 23:40 Dose: 100 mls/hr Admin: 12/11/16 23:09 Dose: 100 mls/hr Infusion: 12/11/16 16:58 Dose: 100 mls/hr Admin: 12/11/16 16:28 Dose: 100 mls/hr Ondansetron HCl (Zofran) 4 mg IVPUSH Q6H PRN PRN Reason: Nausea/Vomiting Last Admin: 12/11/16 08:13 Dose: 4 mg Promethazine HCl (Phenergan) 12.5 mg IM Q4H PRN PRN Reason: Nausea Sodium Chloride (Saline Flush) 10 ml FLUSH ASDIRECTED PRN PRN Reason: Keep Vein Open Sodium Chloride (Saline Flush) 2.5 ml FLUSH ASDIRECTED PRN PRN Reason: Keep Vein Open - Plan Plan (Free Text/Narrative):: Patient is a 51 year old male who presented with a two day history of RUQ pain. He had a prior attack 2 months prior that was similar but not as severe in nature. This attack was associated with fevers, chills, nausea and vomiting. He was seen at the ED here. A CT was performed that showed a severely inflammed gallbladder with associated inflamation in the colon around it. The patient was resuscitated with IVFs and given zosyn. Over the last 24 hours his WBC has slowly come down. His nausea and vomiting subsided. His pain slightly improved. His bilirubin was slightly increased this mornings so a RUQ US was performed. This showed gangrenous calculous cholecystitis. Given this finding the decision was made to transfer the patient. He should have either a cholecystostomy tube placed (which we cannot do) or have surgery. Surgery carries a very high risk of postoperative sepsis and intraoperative complications. Both of these would be better served in a facility with more resources.
--- NOTE | 2016-12-12 17:46 | US ---
EXAM DATE: 12/11/16 PATIENT'S AGE: 51 Patient: GABI CORODVA Facility: [place], [place] Site . Site : [id number] Study: US Abdomen fax report [id number]/12/2016 8:51:10 AM Ordering Physician: Blanche Black Final Report: HISTORY: Thickened gallbladder on CT scan. FINDINGS: Multiple grayscale static images from an abdomen ultrasound were evaluated an compared with CT 11 December 2016. The pancreatic body is normal. The head and tail are not well seen due to bowel gas. The gallbladder is filled with heterogeneous hyperechoic material with a few areas of shadowing. Gallbladder wall is thickened and striated at 10 mm. The common bile duct measures 6 mm. Patient has a positive sonographic Garcia`s sign. The liver measures 17.6 cm in length. Echotexture is homogeneous. No intrahepatic ductal dilatation or mass is seen. There is no fluid in Vasquez`s pouch. The right kidney measures 12.2 cm is free of hydronephrosis. IMPRESSION: 1. Limited visualization of pancreas. 2. Portable thickening and striated appearance to the gallbladder wall and positive sonographic Garcia`s sign consistent with acute cholecystitis. The striated appearance suggests gangrenous cholecystitis. 3. Echogenic material fills the lumen of the gallbladder with areas of shadowing. This is consistent with cholelithiasis. Diffuse echogenic material is suspicious for blood. 4. Common bile duct at the upper limits of normal at 6 mm. 5. Limited visualization of pancreas. Report faxed to provider as instructed. Dictated by Carley Franco MD @ 12/12/2016 9:12:17 AM Dictated by: Carley Franco MD @ 12/12/2016 09:12:53 (Electronic Signature) Report Signed by Proxy. HUDSON
== END 2016-12-12 14:50 | disposition home or self-care (01) ==
LOC: MW.ED 01:33 → MW.MS 04:48
PROVIDERS: ADMIT Surgery; ATTEND Surgery
DX: K81.0 Acute cholecystitis (principal); Z87.01 Personal history of pneumonia (recurrent); Z79.899 Other long term (current) drug therapy; Z98.890 Other specified postprocedural states
CPT/HCPCS: 36415; 74178; 76705; 80053; 81001; 83690; 85025; 85027; 93005; 96361; 96365; 96366; 96372; 96375; 96376; 99285; A9270; G0378; J1170; J2060; J2405; J2543; J7030; J7040; J7050; J7120; Q9967